=== PATIENT | female | born 1950 | race Caucasian/White ===

== ENCOUNTER → 2023-12-27 07:03 | Outpatient (REF) | payer MEDICARE, OTHER, SELFPAY | LOC: HWRAD 07:03 | PROVIDERS: ATTENDING PHYSICIAN Internal Medicine Critical Care Medicine; FAMILY PHYSICIAN Physician Assistant Medical; OTHER PHYSICIAN Internal Medicine Rheumatology | DX: R05.3 Chronic cough (principal); M06.9 Rheumatoid arthritis, unspecified | CPT/HCPCS: 71250 ==

== ENCOUNTER → 2024-03-16 07:49 | Outpatient (REF) | payer MEDICARE, OTHER, SELFPAY | LOC: HWRAD 07:49 | PROVIDERS: ATTENDING PHYSICIAN Physician Assistant Medical | DX: M85.80 Other specified disorders of bone density and structure, unspecified site (principal); M85.89 Other specified disorders of bone density and structure, multiple sites | CPT/HCPCS: 77080 ==